=== PATIENT | male | born 1995 | race Two or more races ===

== ENCOUNTER 2017-05-25 17:30 | Emergency (ER) | payer SELFPAY ==
[~2017-05-25] VITALS: Ht 175.3 cm; Wt 77.1 kg
[2017-05-25 18:19] VITALS: BP 133/77
[2017-05-25] MEDS ORDERED: CYCLOBENZAPRINE HCL 10 MG TAB PO ONE (20:15)
[2017-05-25] MEDS ORDERED: IBUPROFEN 600 MG TAB PO ONE (20:15)
== END 2017-05-25 20:46 | disposition home or self-care (01) ==
LOC: EDBD 17:30 → ER 17:30
DX: S16.1XXA Strain of muscle, fascia and tendon at neck level, initial encounter (principal); S80.12XA Contusion of left lower leg, initial encounter; S40.012A Contusion of left shoulder, initial encounter; S80.02XA Contusion of left knee, initial encounter; R51 Headache; V49.49XA Driver injured in collision with other motor vehicles in traffic accident, initial encounter; Y93.89 Activity, other specified; Y99.8 Other external cause status; Y92.410 Unspecified street and highway as the place of occurrence of the external cause
CPT/HCPCS: 70450; 71101; 72125; 73030; 73590